=== PATIENT | female | born 1980 | race Caucasian/White ===

== ENCOUNTER 2020-09-10 02:12 | Outpatient (CLI) | payer OTHER, SELFPAY ==
[2020-09-10 17:23] LABS: SARS-CoV-2 RNA PCR Positive
== END 2020-09-10 02:13 | disposition home or self-care (01) ==
LOC: ANHCOVIDDT 02:13
PROVIDERS: Visit Provider Obstetrics & Gynecology Gynecology
DX: U07.1 COVID-19 (principal)
CPT/HCPCS: C9803; U0003

== ENCOUNTER 2020-10-11 01:59 | Day surgery (SDC) | payer OTHER, SELFPAY ==
[2020-09-02 13:18] VITALS: BMI 24.9
--- NOTE | 2020-09-11 11:05 | SUR.PREOP ---
Dr Garza contacted about positive Covid result states will cancel case and reschedule at a later date. Patient contacted and advised to follow up with the office to reschedule and call primary with concerns related to positive test
--- NOTE | 2020-10-05 15:01 | PC.NURSE ---
pt states no recent changes in health hx/medications. no covid symptoms since positive testing date
--- NOTE | 2020-10-11 07:25 | WPDHPUPDATE1 ---
History and Physical Update Update Date/Time: 10/11/20 07:25 History and Physical has been reviewed, including an updated exam of the patient. There are NO changes in the patient's condition. Risks, benefits, and alternatives have been discussed and questions answered. Patient agrees to proceed with procedure.
--- NOTE | 2020-10-11 07:25 | PM.HPGS ---
History of Present Illness History of Present Illness Consent: Risks, benefits, and alternatives have been discussed and questions answered. Patient agrees to proceed with procedure. Chief complaint: Misplaced IUD, Stenoic Cervical Os Narrative: Sandra Rubio is a 40 year old female with IUD placed 11/14. Patient wishes to replace IUD. She had LEEP in 2018 and strings cut at that time. Cervical stenosis noted so plan exchange in OR with hysteroscopy as needed. Risks of surgery including infection, bleeding, and perforation. Also, reviewed risks of IUD including failure, expulsion, perforation, and infection. Agrees to proceed. 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 History of vacuum extraction assisted delivery S/P dilation and curettage 2007 pp hemorrhage Social History Social History Smoking status: Never smoker Alcohol intake: current Substance use: never Spiritual care concerns: No Meds Home Medications and Allergies Home Medications Medication Instructions Recorded Confirmed Type albuterol sulfate 4 inh INHALATION PRN PRN 09/02/20 09/02/20 History ascorbic acid (vitamin C) 500 mg PO DAILY 09/02/20 09/02/20 History fluticasone furoate-vilanterol 2 inh INHALATION DAILY 09/02/20 09/02/20 History [Breo Ellipta] fluticasone propionate [Flonase] 2 spray INTRANASAL BID 09/02/20 09/02/20 History levocetirizine [Xyzal] 5 mg PO DAILY 09/02/20 09/02/20 History multivitamin [Daily Multivitamin] 1 tablet PO DAILY 09/02/20 09/02/20 History ondansetron HCl 4 mg PO PRN 09/02/20 09/02/20 History sumatriptan succinate 4 mg PO PRN 09/02/20 09/02/20 History Allergies Allergy/AdvReac Type Severity Reaction Status Date / Time No Known Allergies Allergy Verified 09/02/20 13:39 Exam Const: General: healthy appearing and comfortable : External Female Exam: normal external appearance Speculum Exam - Vagina: normal appearance of the vagina Speculum Exam - Cervix: Other cervical findings present (very stenotic) Bimanual exam- vagina & uterus: normal bimanual exam Bimanual Exam- Adnexa, other: normal adnexae Assessment and Plan Assessment and plan (1) IUD strings lost: Code(s): T83.32XA - Displacement of intrauterine contraceptive device, initial encounter Status: Acute Assessment and Plan: Plan removal in OR with hysteroscope if needed (2) Encounter for IUD insertion: Code(s): Z30.430 - Encounter for insertion of intrauterine contraceptive device Status: Acute Assessment and Plan: Plan to replace in OR. Device is from my office not hospital.
[2020-10-11] MEDS: ACETAMINOPHEN 500 MG TABLET 1000 MG PO (07:37)
--- NOTE | 2020-10-11 07:41 | P.PNAN_ITS ---
Anes - Initial Pre Proc Eval Procedure: Operation Date: 10/11/20 08:30 Proposed Procedures p Hysteroscopy, Intrauterine Device Removal And Insertion Of Mirena - Mile Garza MD Date/Time: 10/11/20 07:41 Surgeon: Mile Garza MD Pre Op Diagnosis: Misplaced IUD, Stenoic Cervical Os Patient Data Age: 40 Gender: F Height: 5 ft 5 in Weight: 68 kg Allergies Allergy/AdvReac Type Severity Reaction Status Date / Time No Known Allergies Allergy Verified 09/02/20 13:39 Home Medications Medication Instructions Recorded Confirmed Type albuterol sulfate 4 inh INHALATION PRN PRN 09/02/20 09/02/20 History ascorbic acid (vitamin C) 500 mg PO DAILY 09/02/20 09/02/20 History fluticasone furoate-vilanterol 2 inh INHALATION DAILY 09/02/20 09/02/20 History [Breo Ellipta] fluticasone propionate [Flonase] 2 spray INTRANASAL BID 09/02/20 09/02/20 History levocetirizine [Xyzal] 5 mg PO DAILY 09/02/20 09/02/20 History multivitamin [Daily Multivitamin] 1 tablet PO DAILY 09/02/20 09/02/20 History ondansetron HCl 4 mg PO PRN 09/02/20 09/02/20 History sumatriptan succinate 4 mg PO PRN 09/02/20 09/02/20 History Patient hx anesthesia problems: none Family hx anesthesia problems: none [facility] Past Medical History Medical History (Updated 10/11/20 @ 07:41 by Gerard Garsia MD) Asthma (normal spontaneous vaginal delivery) Surgical History Surgical History 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 History of vacuum extraction assisted delivery S/P dilation and curettage 2007 pp hemorrhage Social History Social History Smoking status: Never smoker Alcohol intake: current Substance use: never Spiritual care concerns: No Anes - Eval Final PreProcedure Day of Procedure 10/11/20 07:41 Patient weight: normal Heart: regular rate and rhythm Lungs: clear to auscultation Airway: Mallampati scale class 1 Neurological: alert and oriented Last oral intake: >/= 8 hours ASA classification: II Emergent: no Anesthetic plan: proceed Anesthesia type and monitoring: general GIVS and standard monitoring Informed Consent: The patient's anesthetic plan and its attendant risks and benefits were discussed with the patient/family/POA. Questions were solicited and answers provided to the satisfaction of the patient/family/POA.
[2020-10-11] MEDS: LACTATED RINGERS 1,000 ML 30 ML IV CONT (07:45)
[2020-10-11] MEDS: LIDOCAINE HCL 1% LOCAL INJ 20 ML VIAL 10 ML INFILTRATE (08:19)
[2020-10-11 08:26] VITALS: BP 105/70; PULSE 77; RESP 16; TEMP 36.9; O2SAT 99
--- NOTE | 2020-10-11 08:38 | PM.PROC ---
Procedure Note - Detailed Date of procedure: 10/11/20 Pre-op diagnosis: Misplaced IUD, Stenoic Cervical Os requests IUD placement Post-op diagnosis: same Description of procedure: The patient was taken to the operating room and placed in the dorsal lithotomy position under anesthesia. She was prepped and draped in the usual sterile field. [place] speculum was placed in the vagina and the cervix is grasped on the anterior lip with a tenaculum. The cervix is injected with 1% lidocaine in each quadrant. The sound is unable to be placed and the small dilator is a unable to be placed. The os Finders were opened and the os Finders are unable to pass the external cervix. A scalpel with the 11 blade is used to ambar-cross the cervical opening with release of copious amounts of cervical mucus. The os Finders were then used and the cervix serially dilated to the internal os. I was unable to enter the internal os at this point. The hysteroscope was placed and the strings of the IUD are noted within the cervical canal following the strings was able to use water dilation to enter the cavity with the hysteroscope. The IUD appears to be in the normal position. The graspers were used to grasp the IUD strings and removing the camera and the IUD intact. The IUD is discarded. The uterus is sounded to 8cm. The new Mirena IUD is placed without difficulty. The strings are cut. Vaginal instruments are removed. The patient is awakened from anesthesia and taken to recovery in stable condition. Sponge, needle, and instrument counts are correct per the OR staff. Anesthesia: MAC and local Surgeon: Mile Garza MD Estimated blood loss (mL): 5 Drains: No Packing: No Pathology: none sent Complications: No immediate complications Condition: stable Disposition: PACU Findings: severe external and internal os stenosis; normal appearing endometrium; IUD strings in cervical canal.
[2020-10-11 08:41] VITALS: BP 86/48; PULSE 65; RESP 12; O2SAT 96
[2020-10-11 09:11] VITALS: BP 106/68; PULSE 56; RESP 14; O2SAT 100
[2020-10-11 09:30] VITALS: BP 116/86; PULSE 90; RESP 14
[2020-10-11 10:05] VITALS: BP 107/55; PULSE 56; RESP 14
== END 2020-10-11 10:43 | disposition home or self-care (01) ==
PROVIDERS: PCP Family Medicine; Visit Provider Obstetrics & Gynecology Gynecology
PROC: 0U5B8ZZ Destruction of Endometrium, Via Natural or Artificial Opening Endoscopic (ICD-10-PCS; CPT 58563; principal; 2020-10-11 08:30)
DX: T83.32XA Displacement of intrauterine contraceptive device, initial encounter (principal); Y84.8 Other medical procedures as the cause of abnormal reaction of the patient, or of later complication, without mention of misadventure at the time of the procedure; N88.2 Stricture and stenosis of cervix uteri; J45.909 Unspecified asthma, uncomplicated; Z30.433 Encounter for removal and reinsertion of intrauterine contraceptive device
CPT/HCPCS: 58562; 58300; A9270; J2250; J3010; J7030; J7120

== ENCOUNTER → 2021-05-13 15:23 | Outpatient (CLI) | payer OTHER, SELFPAY ==
--- NOTE | ~2021-05-13 | US_ITS ---
EXAMINATION: US transvaginal DATE: 05/13/2021 15:42 INDICATION: Missing IUD strings Comparison:No prior studies for comparison. TECHNIQUE: Multiple endovaginal sonographic images of the pelvis performed. FINDINGS: The uterus measures 7.6 x 4.7 x 5.8 cm. IUD in expected position in the endometrium. The en dometrial complex measures 5.1 mm. The right ovary measures 2.1 x 1.9 x 1.9 cm and the left ovary measures 2.8 x 2.1 x 1.7 cm. There ar e small follicles in each ovary. Normal doppler signal in both ovaries. There is no free fluid in the pelvis. There are no abnormal masses seen on either side. IMPRESSION: 1. Unremarkable pelvic ultrasound. IUD in expected position. Reviewed, dictated and finalized at location A.
== END ==
PROVIDERS: Visit Provider Nurse Practitioner
DX: Z30.431 Encounter for routine checking of intrauterine contraceptive device (principal)
CPT/HCPCS: 76830